=== PATIENT | female | born 1990 | race Two or more races ===

== ENCOUNTER 2020-06-08 14:59 | Inpatient (IN) | payer OTHER ==
[~2020-06-08] VITALS: Ht 160 cm; Wt 3.6 kg
[2020-06-30] MEDS ORDERED: PRENATABS RX T1 EACH PO (04:53)
== END 2020-07-02 13:13 | disposition home or self-care (01) | DRG 788 ==
LOC: OB/GYN 06-30 04:23 → LDR 06-30 04:23 → O/R 06-30 12:45 → OB/GYN 06-30 13:33
PROVIDERS: Obstetrics & Gynecology; ADMIT Obstetrics & Gynecology Maternal & Fetal Medicine; ATTEND Obstetrics & Gynecology Maternal & Fetal Medicine
PROC: 4A1HXFZ Monitoring of Products of Conception, Cardiac Rhythm, External Approach (ICD-10-PCS; 2020-06-30)
PROC: 3E033VJ Introduction of Other Hormone into Peripheral Vein, Percutaneous Approach (ICD-10-PCS; 2020-06-30)
PROC: 10D00Z1 Extraction of Products of Conception, Low, Open Approach (ICD-10-PCS; principal; 2020-06-30 11:00)
DX: O82 Encounter for cesarean delivery without indication (principal); O65.4 Obstructed labor due to fetopelvic disproportion, unspecified; Z3A.39 39 weeks gestation of pregnancy; Z37.0 Single live birth; Z20.828 Contact with and (suspected) exposure to other viral communicable diseases

== ENCOUNTER 2020-07-08 13:55 | Outpatient (CLI) | payer OTHER ==
[~2020-07-08 13:55] MED LIST: PRENATABS RX T1 EACH PO
== END 2020-07-08 14:20 | disposition home or self-care (01) ==
LOC: OFIC 805 13:55
PROVIDERS: ATTEND Otolaryngology Otology & Neurotology
DX: H65.21 Chronic serous otitis media, right ear (principal); H90.11 Conductive hearing loss, unilateral, right ear, with unrestricted hearing on the contralateral side; H93.8X1 Other specified disorders of right ear

== ENCOUNTER 2020-08-17 14:07 | Outpatient (CLI) | payer OTHER | END 2020-08-17 15:00 | disposition home or self-care (01) | LOC: OFIC 805 14:07 | PROVIDERS: ATTEND Otolaryngology Otology & Neurotology | DX: H90.11 Conductive hearing loss, unilateral, right ear, with unrestricted hearing on the contralateral side (principal); H93.8X1 Other specified disorders of right ear ==

== ENCOUNTER 2020-08-25 11:01 | Outpatient (CLI) | payer OTHER | END 2020-08-25 11:59 | disposition home or self-care (01) | LOC: TOM 11:01 | PROVIDERS: ATTEND Otolaryngology Otology & Neurotology | DX: H70.891 Other mastoiditis and related conditions, right ear (principal); H20.11 Chronic iridocyclitis, right eye ==

== ENCOUNTER 2020-09-09 13:34 | Outpatient (CLI) | payer OTHER | END 2020-09-09 14:20 | disposition home or self-care (01) | LOC: OFIC 805 13:34 | PROVIDERS: ATTEND Otolaryngology Otology & Neurotology | DX: H93.8X1 Other specified disorders of right ear (principal); H80.81 Other otosclerosis, right ear; H90.11 Conductive hearing loss, unilateral, right ear, with unrestricted hearing on the contralateral side ==

== ENCOUNTER 2020-10-16 08:57 | Day surgery (SDC) | payer OTHER ==
[2020-10-16] MEDS ORDERED: CILOXAN5 ML OTIC (12:48)
[2020-10-16] MEDS ORDERED: KEFLEX500 MG PO (12:48)
[2020-10-16] MEDS ORDERED: ZOFRAN8 MG PO (12:48)
== END 2020-10-16 16:30 | disposition home or self-care (01) ==
LOC: CIR.AMB 08:57
PROVIDERS: ATTEND Otolaryngology Otology & Neurotology
DX: H80.01 Otosclerosis involving oval window, nonobliterative, right ear (principal); H90.11 Conductive hearing loss, unilateral, right ear, with unrestricted hearing on the contralateral side; Z20.828 Contact with and (suspected) exposure to other viral communicable diseases

== ENCOUNTER → 2020-10-23 | Outpatient (CLI) | payer OTHER ==
[~2020-10-23] MED LIST changes: +CILOXAN5 ML OTIC; +KEFLEX500 MG PO; +ZOFRAN8 MG PO
== END | disposition home or self-care (01) ==
LOC: OFIC 805 13:02
PROVIDERS: ATTEND Otolaryngology Otology & Neurotology
DX: H80.81 Other otosclerosis, right ear (principal); H93.8X1 Other specified disorders of right ear; H90.11 Conductive hearing loss, unilateral, right ear, with unrestricted hearing on the contralateral side

== ENCOUNTER 2020-12-02 13:12 | Outpatient (CLI) | payer OTHER | END 2020-12-02 13:58 | disposition home or self-care (01) | LOC: OFIC 805 13:12 | PROVIDERS: ATTEND Otolaryngology Otology & Neurotology | DX: H65.21 Chronic serous otitis media, right ear (principal); H90.11 Conductive hearing loss, unilateral, right ear, with unrestricted hearing on the contralateral side; H93.8X1 Other specified disorders of right ear; H80.81 Other otosclerosis, right ear ==

== ENCOUNTER 2020-12-30 10:28 | Outpatient (CLI) | payer OTHER | END 2020-12-30 13:09 | disposition home or self-care (01) | LOC: OFIC 805 10:28 | PROVIDERS: ATTEND Otolaryngology Otology & Neurotology | DX: H80.81 Other otosclerosis, right ear (principal); H93.8X1 Other specified disorders of right ear; H90.11 Conductive hearing loss, unilateral, right ear, with unrestricted hearing on the contralateral side; H65.21 Chronic serous otitis media, right ear ==